=== PATIENT | female | born 1935 | race Caucasian/White ===

== ENCOUNTER 2019-06-14 12:21 | Emergency (ER) | payer OTHER ==
[2019-06-14] MEDS ORDERED: ASPIRIN 81 MG CHEWABLE TABLET ONE (13:10)
--- NOTE | 2019-06-14 13:20 | RAD REPORT ---
EXAM DESCRIPTION: RAD - Chest Single View - 06/14/2019 1:07 pm CLINICAL HISTORY: flushing Chest pain. COMPARISON: No comparisons FINDINGS: Portable technique limits examination quality. The lungs are grossly clear. Mildly elevated right hemidiaphragm. The heart is normal in size. No dis placed fractures. IMPRESSION: No acute intrathoracic process suspected.
[2019-06-14 13:22] LABS: Absolute Lymphocytes (CBC) 1.6 K/uL (0.7-4.9); Basophils % 0.1 % (0-1.3); Lymphocytes % 20.7 % (15.3-44.8); MPV 8.7 fL (7.6-11.3); RBC Red Blood Cell Count 4.92 M/uL (3.86-4.86)
[2019-06-14 13:23] LABS: Protime INR 1.08
[2019-06-14 13:42] LABS: Albumin 3.4 g/dL (3.4-5.0); Bilirubin Direct 0.2 mg/dL (0-0.2); Bilirubin Total 0.6 mg/dL (0.2-1.0); Magnesium 2.1 mg/dL (1.8-2.4); Potassium 4.1 mmol/L (3.5-5.1); Protein, Total 7.3 g/dL (6.4-8.2); Troponin (Emerg Dept Use Only) 0.02 ng/mL (0.0-0.045)
[2019-06-14] MEDS ORDERED: NA CHLORIDE 0.9% 500 ML ONE (14:02)
--- NOTE | 2019-06-14 14:42 | EDPHYS ---
Physician Documentation [facility] Name: Isidra Roger Age: 83 yrs Sex: Female : 1935 Arrival Date: 06/14/2019 Time: 12:33 Bed 15 Private MD: ED Physician Patricio Laureano HPI: 06/13 14:38 This 83 yrs old Female presents to ER via EMS with complaints of Allergic snw Reaction. 14:38 The patient presents with itching, redness of skin. Onset: The symptoms/episode snw began/occurred suddenly, just prior to arrival. Associated signs and symptoms: The patient has no apparent associated signs or symptoms. Possible causes: Niacin flush. Severity of symptoms: At their worst the symptoms were moderate severe in the emergency department the symptoms have improved. The patient has not experienced similar symptoms in the past. It is unknown whether or not the patient has recently seen a physician. denies chest pain, shortness of breath, NIH scale 0. Historical: - Allergies: 12:36 No Known Allergies; em - Home Meds: 12:36 levothyroxine 100 mcg tab [Active]; meloxicam oral oral [Active]; ezetimibe oral oral em [Active]; tramadol 50 mg Oral tab [Active]; 13:38 Niacin Oral [Active]; em - PMHx: 12:36 Hypothyroidism; Hyperlipidemia; em - PSHx: 13:38 Hysterectomy; ; back surgery; em - Immunization history:: Adult Immunizations up to date. - Social history:: Smoking status: Patient denies any tobacco usage or history of. ROS: 13:40 Constitutional: Negative for fever, chills, and weight loss, Eyes: Negative for injury, snw pain, redness, and discharge, ENT: Negative for injury, pain, and discharge, Neck: Negative for injury, pain, and swelling, Cardiovascular: Negative for chest pain, palpitations, and edema, Respiratory: Negative for shortness of breath, cough, wheezing, and pleuritic chest pain, Abdomen/GI: Negative for abdominal pain, nausea, vomiting, diarrhea, and constipation, Back: Negative for injury and pain, : Negative for injury, bleeding, discharge, and swelling, MS/Extremity: Negative for injury and deformity. 13:40 Skin: Positive for diaphoresis, diffusely, flushing. 13:40 Neuro: Positive for sudden weakness, resolved post 20-30 min, flushing, itching continues. Exam: 13:39 Head/Face: Normocephalic, atraumatic. Eyes: Pupils equal round and reactive to light, snw extra-ocular motions intact. Lids and lashes normal. Conjunctiva and sclera are non-icteric and not injected. Cornea within normal limits. Periorbital areas with no swelling, redness, or edema. ENT: Nares patent. No nasal discharge, no septal abnormalities noted. Tympanic membranes are normal and external auditory canals are clear. Oropharynx with no redness, swelling, or masses, exudates, or evidence of obstruction, uvula midline. Mucous membranes moist. Neck: Trachea midline, no thyromegaly or masses palpated, and no cervical lymphadenopathy. Supple, full range of motion without nuchal rigidity, or vertebral point tenderness. No Meningismus. Chest/axilla: Normal chest wall appearance and motion. Nontender with no deformity. No lesions are appreciated. Cardiovascular: Regular rate and rhythm with a normal S1 and S2. No gallops, murmurs, or rubs. Normal PMI, no JVD. No pulse deficits. Respiratory: Lungs have equal breath sounds bilaterally, clear to auscultation and percussion. No rales, rhonchi or wheezes noted. No increased work of breathing, no retractions or nasal flaring. Abdomen/GI: Soft, non-tender, with normal bowel sounds. No distension or tympany. No guarding or rebound. No evidence of tenderness throughout. Back: No spinal tenderness. No costovertebral tenderness. Full range of motion. MS/ Extremity: Pulses equal, no cyanosis. Neurovascular intact. Full, normal range of motion. Neuro: Awake and alert, GCS 15, oriented to person, place, time, and situation. Cranial nerves II-XII grossly intact. Motor strength 5/5 in all extremities. Sensory grossly intact. Cerebellar exam normal. Normal gait. Psych: Awake, alert, with orientation to person, place and time. Behavior, mood, and affect are within normal limits. 13:39 Constitutional: The patient appears alert, awake, flushed, itching 13:39 Skin: Appearance: flushing, noted on the , that are marked, Turgor: is excellent. Vital Signs: 12:36 BP 140 / 59; Pulse 80; Resp 18; Pulse Ox 98% on R/A; Pain 0/10; em 12:36 Weight 88.45 kg; Height 5 ft. 1 in. (154.94 cm); em 13:08 Temp 97.6; mg2 13:49 BP 133 / 51; Pulse 68; Resp 18; Pulse Ox 98% on R/A; Pain 0/10; em 14:58 BP 129 / 58; Pulse 72; Resp 18; Pulse Ox 99% on R/A; Pain 0/10; em 12:36 Body Mass Index 36.84 (88.45 kg, 154.94 cm) em NIH Stroke Scale Scores: 13:39 NIHSS Score: 0 snw MDM: 12:34 Patient medically screened. tw4 14:42 Data reviewed: vital signs, nurses notes, lab test result(s), EKG, radiologic studies. snw Data interpreted: Pulse oximetry: on room air is 98 %. Interpretation: normal. Counseling: I had a detailed discussion with the patient and/or guardian regarding: the historical points, exam findings, and any diagnostic results supporting the discharge/admit diagnosis, the presence of at least one elevated blood pressure reading (>120/80) during this emergency department visit, lab results, radiology results, the need for outpatient follow up, to return to the emergency department if symptoms worsen or persist or if there are any questions or concerns that arise at home. Response to treatment: the patient's symptoms have markedly improved after treatment, the patient's symptoms have resolved after treatment, mental status has returned to baseline, the patient is not short of breath, the patient is not tachycardic, the patient's temperature has normalized. 06/13 12:52 Order name: Basic Metabolic Panel; Complete Time: 13:45 snw 06/13 12:52 Order name: CBC with Diff; Complete Time: 13:26 snw 06/13 12:52 Order name: LFT's; Complete Time: 13:45 snw 06/13 12:52 Order name: Magnesium; Complete Time: 13:45 snw 06/13 12:52 Order name: NT PRO-BNP; Complete Time: 13:45 snw 06/13 12:52 Order name: PT-INR; Complete Time: 13:26 snw 06/13 12:39 Order name: PO challenge: applesauce please; Complete Time: 13:14 w 06/13 12:52 Order name: Troponin (emerg Dept Use Only); Complete Time: 13:45 w 06/13 12:52 Order name: XRAY Chest (1 view); Complete Time: 13:33 snw 06/13 12:52 Order name: EKG; Complete Time: 12:53 w 06/13 12:52 Order name: Cardiac monitoring; Complete Time: 13:15 w 06/13 12:52 Order name: EKG - Nurse/Tech; Complete Time: 13:15 snw 06/13 12:52 Order name: IV Saline Lock; Complete Time: 13:15 w 06/13 12:52 Order name: Labs collected and sent; Complete Time: 13:14 w 06/13 12:52 Order name: O2 Per Protocol; Complete Time: 13:14 w 06/13 12:52 Order name: O2 Sat Monitoring; Complete Time: 13:14 snw Administered Medications: 13:05 Drug: Aspirin Chewable Tablet 162 mg Route: PO; em 14:05 Follow up: Response: No adverse reaction; Marked relief of symptoms em 14:06 Drug: NS 0.9% 500 ml Route: IV; Rate: bolus; Site: right antecubital; em 14:33 Follow up: IV Status: Completed infusion; IV Intake: 500ml em Disposition: 20:58 Co-signature as Attending Physician, Patricio Laureano MD I agree with the assessment and 4 plan of care. Disposition: 06/14/19 14:40 Discharged to Home. Impression: Flushing - Niacin, Adverse effect of unspecified drugs, medicaments and biological substances. - Condition is Stable. - Discharge Instructions: Nontoxic Ingestion. - Medication Reconciliation Form, Thank You Letter, Antibiotic Education, Prescription Opioid Use form. - Follow up: Emergency Department; When: As needed; Reason: Worsening of condition. Follow up: Private Physician; When: 1 - 2 days; Reason: Recheck today's complaints, Continuance of care, Re-evaluation by your physician. NIH Stroke Scale - NIH Stroke Score Date: 06/14/2019 Time: 13:39 Total Score = 0 1a. Level of Consciousness (LOC) - 0(Alert) 1b. Level of Consciousness (LOC) (Year \T\ Age) - 0(Both) 1c. LOC Commands (Open \T\ Closes Eyes/Negotiator) - 0(Both) 2. Best Gaze (Lateral Gaze Paresis) - 0(Normal) 3. Visual Field Loss - 0(No visual loss) 4. Facial Palsy - 0(Normal) 5a. Left Arm: Motor (10-second hold) - 0(No drift) 5b. Right Arm: Motor (10-second hold) - 0(No drift) 6a. Left Leg: Motor (5-second hold - always test supine) - 0(No drift) 6b. Right Leg: Motor (5-second hold - always test supine) - 0(No drift) 7. Limb Ataxia (finger/nose \T\ heel/roy - test with eyes open) - 0(Absent) 8. Sensory Loss (pinprick arms/legs/face) - 0(Normal) 9. Best Language: Aphasia (description/naming/reading) - 0(No aphasia) 10. Dysarthria (speech clarity - read or repeat words) - 0(Normal) 11. Extinction and Inattention (visual/tactile/auditory/spatial/personal) - 0(No abnormality) Initials: snw Signatures: Dispatcher [employer] EDMS Amaris Hu, WAITER/WAITRESS FIRST CLASS-C WAITER/WAITRESS FIRST CLASS-Csnw Randy Garcia RN RN em Wadley, Terrence, MD MD tw4 Corrections: (The following items were deleted from the chart) 14:41 14:40 06/14/2019 14:40 Discharged to Home. Impression: Flushing - Niacin. snw Condition is Stable. Forms are Medication Reconciliation Form, Thank You Letter, Antibiotic Education, Prescription Opioid Use. Follow up: Emergency Department; When: As needed; Reason: Worsening of condition. Follow up: Private Physician; When: 1 - 2 days; Reason: Recheck today's complaints, Continuance of care, Re-evaluation by your physician. snw 15:40 14:41 06/14/2019 14:40 Discharged to Home. Impression: Flushing - Niacin; em Adverse effect of unspecified drugs, medicaments and biological substances. Condition is Stable. Forms are Medication Reconciliation Form, Thank You Letter, Antibiotic Education, Prescription Opioid Use. Follow up: Emergency Department; When: As needed; Reason: Worsening of condition. Follow up: Private Physician; When: 1 - 2 days; Reason: Recheck today's complaints, Continuance of care, Re-evaluation by your physician. snw
--- NOTE | 2019-06-14 14:42 | ER ---
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 Coronavirus screen: The patient has NOT traveled to [place] in the past 14 days. Ebola Screen: Patient negative for fever greater than or equal to 101.5 degrees Fahrenheit, and additional compatible Ebola Virus Disease symptoms Patient denies exposure to infectious person. Patient denies travel to an Ebola-affected area in the 21 days before illness onset. No symptoms or risks identified at this time. Onset: The symptoms/episode began/occurred suddenly, 2 hour(s) ago. Anaphylaxis evaluation, no signs or symptoms of anaphylaxis were noted. Initial Sepsis Screen: Does the patient meet any 2 criteria? No. Patient's initial sepsis screen is negative. Does the patient have a suspected source of infection? No. Patient's initial sepsis screen is negative. Risk Assessment: Do you want to hurt yourself or someone else? Patient reports no desire to harm self or others. 12:36 Method Of Arrival: EMS: [facility] em 12:36 Acuity: LEIGH ANN 3 em Historical: - Allergies: 12:36 No Known Allergies; em - Home Meds: 12:36 levothyroxine 100 mcg tab [Active]; meloxicam oral oral [Active]; ezetimibe oral oral em [Active]; tramadol 50 mg Oral tab [Active]; 13:38 Niacin Oral [Active]; em - PMHx: 12:36 Hypothyroidism; Hyperlipidemia; em - PSHx: 13:38 Hysterectomy; ; back surgery; em - Immunization history:: Adult Immunizations up to date. - Social history:: Smoking status: Patient denies any tobacco usage or history of. Screenin:37 Abuse screen: Denies threats or abuse. Nutritional screening: No deficits noted. em Tuberculosis screening: No symptoms or risk factors identified. Fall Risk None identified. Assessment: 12:36 General: Appears in no apparent distress. comfortable, Behavior is calm, cooperative, em Denies fever. Pain: Denies pain. Neuro: Level of Consciousness is awake, alert, obeys commands, Oriented to person, place, time, situation, Appropriate for age Economic Consultant are equal bilaterally Moves all extremities. Speech is normal, Facial symmetry appears normal, Reports a syncopal episode weakness. Cardiovascular: Reports fatigue, Denies chest pain, nausea, shortness of breath, Capillary refill < 3 seconds Patient's skin is warm and dry. Rhythm is sinus rhythm. Respiratory: Airway is patent Respiratory effort is even, unlabored, Respiratory pattern is regular, symmetrical, Breath sounds are clear bilaterally. GI: Abdomen is round non-distended. Derm: Skin is intact, is thin, Skin is pink, warm \T\ dry. redness noted to upper extremities and bhumi. thighs Reports itching. Musculoskeletal: Capillary refill < 3 seconds, Range of motion: intact in all extremities. 13:10 Reassessment: Patient appears in no apparent distress at this time. given apple sauce, em tolerated well. 13:48 Reassessment: Patient appears in no apparent distress at this time. Patient and/or em family updated on plan of care and expected duration. Pain level reassessed. Patient is alert, oriented x 3, equal unlabored respirations, skin warm/dry/pink. itching has improved. 14:30 Reassessment: Patient appears in no apparent distress at this time. Patient and/or em family updated on plan of care and expected duration. Pain level reassessed. Patient is alert, oriented x 3, equal unlabored respirations, skin warm/dry/pink. Patient denies pain at this time. Patient states feeling better. Patient states symptoms have improved. Vital Signs: 12:36 BP 140 / 59; Pulse 80; Resp 18; Pulse Ox 98% on R/A; Pain 0/10; em 12:36 Weight 88.45 kg; Height 5 ft. 1 in. (154.94 cm); em 13:08 Temp 97.6; mg2 13:49 BP 133 / 51; Pulse 68; Resp 18; Pulse Ox 98% on R/A; Pain 0/10; em 14:58 BP 129 / 58; Pulse 72; Resp 18; Pulse Ox 99% on R/A; Pain 0/10; em 12:36 Body Mass Index 36.84 (88.45 kg, 154.94 cm) em NIH Stroke Scale Scores: 13:39 NIHSS Score: 0 snw ED Course: 12:33 Patient arrived in ED. em 12:34 Patricio Laureano MD is Attending Physician. tw4 12:36 Randy Garcia, RN is Primary Nurse. em 12:36 Arm band placed on. em 12:37 Patient has correct armband on for positive identification. Placed in gown. Bed in low em position. Call light in reach. Side rails up X2. Adult w/ patient. classroom monitor on. Pulse ox on. NIBP on. 12:37 Maintain EMS IV. Dressing intact. Good blood return noted. Site clean \T\ dry. Gauge \T\ em site: 20 RAC. 12:38 Amaris Hu FNP-C is [facility]. snw 12:40 Triage completed. em 13:13 XRAY Chest (1 view) In Process Unspecified. EDMS 13:47 EKG done, by technical business analyst. reviewed by Amaris AADM. at1 15:37 No provider procedures requiring assistance completed. IV discontinued, intact, em bleeding controlled, No redness/swelling at site. Pressure dressing applied. Administered Medications: 13:05 Drug: Aspirin Chewable Tablet 162 mg Route: PO; em 14:05 Follow up: Response: No adverse reaction; Marked relief of symptoms em 14:06 Drug: NS 0.9% 500 ml Route: IV; Rate: bolus; Site: right antecubital; em 14:33 Follow up: IV Status: Completed infusion; IV Intake: 500ml em Intake: 14:33 IV: 500ml; Total: 500ml. em Outcome: 14:40 Discharge ordered by . snw 15:37 Discharged to home ambulatory, with family. em 15:37 Condition: good 15:37 Discharge instructions given to patient, family, Instructed on discharge instructions, follow up and referral plans. Demonstrated understanding of instructions, follow-up care. 15:40 Patient left the ED. em NIH Stroke Scale - NIH Stroke Score Date: 06/14/2019 Time: 13:39 Total Score = 0 1a. Level of Consciousness (LOC) - 0(Alert) 1b. Level of Consciousness (LOC) (Year \T\ Age) - 0(Both) 1c. LOC Commands (Open \T\ Closes Eyes/Industrial Gas Servicer Supervisor) - 0(Both) 2. Best Gaze (Lateral Gaze Paresis) - 0(Normal) 3. Visual Field Loss - 0(No visual loss) 4. Facial Palsy - 0(Normal) 5a. Left Arm: Motor (10-second hold) - 0(No drift) 5b. Right Arm: Motor (10-second hold) - 0(No drift) 6a. Left Leg: Motor (5-second hold - always test supine) - 0(No drift) 6b. Right Leg: Motor (5-second hold - always test supine) - 0(No drift) 7. Limb Ataxia (finger/nose \T\ heel/roy - test with eyes open) - 0(Absent) 8. Sensory Loss (pinprick arms/legs/face) - 0(Normal) 9. Best Language: Aphasia (description/naming/reading) - 0(No aphasia) 10. Dysarthria (speech clarity - read or repeat words) - 0(Normal) 11. Extinction and Inattention (visual/tactile/auditory/spatial/personal) - 0(No abnormality) Initials: snw Signatures: Dispatcher [employer] Amaris Nava, BOX OFFICE ATTENDANT-C BOX OFFICE ATTENDANT-Csnw Randy Garcia, PERFECTO RN em Lacy Cid, hot wound spring production supervisor EKG Tat1 Patricio Laureano MD MD tw4 Emeterio Donald RN RN mg2
--- NOTE | 2019-06-14 15:32 | EKG ---
Test Date: 2019-06-14 Test Time: 13:19:07 Double End Production Grinder: VILMA MEASUREMENT RESULTS: Intervals: Rate: 73 MD: 140 QRSD: 108 QT: 400 QTc: 440 [place]: P: 79 MD: 140 QRS: 58 T: 60 INTERPRETIVE STATEMENTS: Normal sinus rhythm Incomplete right bundle branch block Nonspecific T wave abnormality Abnormal ECG No previous ECG available for comparison Electronically Signed On 06-14-19 15:31:36 COKE OVEN PATCHER by Thiago Haywood
[2019-06-14 16:46] VITALS: TEMP 97.6
[2019-06-14 16:49] VITALS: BP 129/58; O2SAT 99
== END 2019-06-14 15:40 | disposition home or self-care (01) ==
LOC: ER 12:21
DX: R23.2 Flushing (principal); T50.905A Adverse effect of unspecified drugs, medicaments and biological substances, initial encounter; Y92.9 Unspecified place or not applicable; E03.9 Hypothyroidism, unspecified; E78.5 Hyperlipidemia, unspecified
CPT/HCPCS: 93005; 85025; 80048; 36415; 83735; 85610; 80076; 84484; 83880; 71045; 99284; J7040

== ENCOUNTER 2021-08-29 10:46 | Inpatient (IN) | payer OTHER ==
[2021-08-29] MEDS ORDERED: NA CHLORIDE 0.9% 1,000 ML ONE (11:11)
[2021-08-29] MEDS ORDERED: ADENOSINE 6 MG/ 2ML VIAL IV ONE (11:11)
[2021-08-29] MEDS ORDERED: dilTIAZem HCL 25 MG/5 ML VIAL IV ONE (11:20)
[2021-08-29 11:54] LABS: Potassium 4.1 mmol/L (3.5-5.1); Troponin High Sensitivity 28.4 pg/mL (<58.9)
[2021-08-29] MEDS ORDERED: ASPIRIN 81 MG CHEWABLE TABLET ONE (11:54)
[2021-08-29 12:01] LABS: Protime INR 1.05
[2021-08-29 12:02] LABS: Absolute Lymphocytes (CBC) 2.4 K/uL (0.7-4.9); Hematocrit 51.9 % (36.0-45.0); Lymphocytes % 26.7 % (15.3-44.8); RBC Red Blood Cell Count 5.55 M/uL (3.86-4.86)
--- NOTE | 2021-08-29 12:03 | RAD REPORT ---
EXAM DESCRIPTION: Melina Single View08/29/2021 11:35 am CLINICAL HISTORY: Hypertension and supraventricular tachycardia COMPARISON: 2019 FINDINGS: The lungs appear clear of acute infiltrate. The heart is normal size IMPRESSION: No acute abnormalities displayed
--- NOTE | 2021-08-29 12:14 | ER ---
Nurse's Notes [facility] Name: Isidra Roger Age: 86 yrs Sex: Female : 1935 Arrival Date: 08/29/2021 Time: 10:47 Bed 28 Private MD: Ramila Peralta H Diagnosis: Unspecified atrial fibrillation;Atrial Fibrillation with RVR;Essential (primary) hypertension Presentation: 08/29 10:50 Chief complaint: Patient states: she felt like her HR was elevated today, and went to ap3 urgent care but was then sent to ER from there. Patient states they informed her that her blood pressure was high and her HR was elevated. Patient denies any pain, shortness of breath or N/V at this time. Coronavirus screen: At this time, the client does not indicate any symptoms associated with coronavirus-19. Ebola Screen: No symptoms or risks identified at this time. Initial Sepsis Screen: Does the patient meet any 2 criteria? No. Patient's initial sepsis screen is negative. Does the patient have a suspected source of infection? No. Patient's initial sepsis screen is negative. Risk Assessment: Do you want to hurt yourself or someone else? Patient reports no desire to harm self or others. Onset of symptoms was August 29, 2021. 10:50 Method Of Arrival: Ambulatory ap3 10:50 Acuity: LEIGH ANN 2 ap3 Triage Assessment: 11:10 General: Appears in no apparent distress. Behavior is calm, cooperative. Pain: Denies ap3 pain. Neuro: Level of Consciousness is awake, alert, obeys commands, Oriented to person, place, time, situation, Moves all extremities. Gait is steady, Speech is normal. Cardiovascular: Denies chest pain, shortness of breath, Patient's skin is warm and dry. Rhythm is SVT. Respiratory: Airway is patent Respiratory effort is even, unlabored, Respiratory pattern is regular, symmetrical. Historical: - Allergies: 11:06 No Known Allergies; ap3 - Home Meds: 11:06 tramadol Oral [Active]; meloxicam Oral [Active]; levothyroxine [Active]; ap3 Triamterene-Hydrochlorothiazid Oral [Active]; rosuvastatin oral [Active]; - PMHx: 11:06 Hyperlipidemia; Hypothyroidism; Hypertensive disorder; ap3 - Immunization history:: Client reports receiving the 2nd dose of the Covid vaccine. - Social history:: Smoking status: Patient denies any tobacco usage or history of. Screenin:11 Abuse screen: Denies threats or abuse. Nutritional screening: No deficits noted. ap3 Tuberculosis screening: No symptoms or risk factors identified. 19:13 Fall Risk None identified. lg3 Assessment: 11:10 General: SEE TRIAGE NOTE. AFIB/RVR NOTED ON EKG. bp 11:12 Pain: pt denies pain. ap3 12:30 Reassessment: No changes from previously documented assessment. Patient and/or family bp updated on plan of care and expected duration. Pain level reassessed. 14:30 Reassessment: ADMIT INITIATED. bp 16:00 Reassessment: No changes from previously documented assessment. Patient and/or family bp updated on plan of care and expected duration. Pain level reassessed. Cardiovascular: Rhythm is atrial flutter. 17:00 Reassessment: No changes from previously documented assessment. Patient and/or family bp updated on plan of care and expected duration. Pain level reassessed. ADMIT IN PROCESS. Cardiovascular: Rhythm is atrial flutter. 19:13 Pain: Pain began. lg3 20:19 General: Appears in no apparent distress. comfortable, Behavior is calm, cooperative. lg3 Pain: Denies pain. Neuro: No deficits noted. Saucedo Agitation-Sedation Scale (RASS): 0 - Alert and Calm Level of Consciousness is awake, alert, obeys commands, Oriented to person, place, time, situation. Cardiovascular: Denies chest pain, lightheadedness, shortness of breath, Rhythm is atrial flutter. Respiratory: No deficits noted. Airway is patent Trachea midline Respiratory effort is even, unlabored, Respiratory pattern is regular, symmetrical. GI: No deficits noted. No signs and/or symptoms were reported involving the gastrointestinal system. Abdomen is round non-distended. : No deficits noted. No signs and/or symptoms were reported regarding the genitourinary system. EENT: No deficits noted. No signs and/or symptoms were reported regarding the EENT system. Derm: No deficits noted. No signs and/or symptoms reported regarding the dermatologic system. Skin is intact, is healthy with good turgor, Skin is dry, Skin is pink, warm \T\ dry. Musculoskeletal: No deficits noted. No signs and/or symptoms reported regarding the musculoskeletal system. Circulation, motion, and sensation intact. Range of motion: intact in all extremities. 21:45 Reassessment: Patient appears in no apparent distress at this time. No changes from lg3 previously documented assessment. Patient and/or family updated on plan of care and expected duration. Pain level reassessed. Patient is alert, oriented x 3, equal unlabored respirations, skin warm/dry/pink. 23:10 Reassessment: pt ambulated to restroom. steady gate noted. lg3 08/30 00:56 Reassessment: Patient appears in no apparent distress at this time. No changes from lg3 previously documented assessment. Patient and/or family updated on plan of care and expected duration. Pain level reassessed. Patient is alert, oriented x 3, equal unlabored respirations, skin warm/dry/pink. Patient denies pain at this time. Patient states symptoms have improved. 02:19 Reassessment: Patient appears in no apparent distress at this time. No changes from lg3 previously documented assessment. Patient and/or family updated on plan of care and expected duration. Pain level reassessed. Patient is alert, oriented x 3, equal unlabored respirations, skin warm/dry/pink. Patient denies pain at this time. Cardiovascular: Rhythm is atrial flutter. Vital Signs: 08/29 10:50 BP 200 / 118; Pulse 162; Resp 18; Temp 97.8; Pulse Ox 97% ; Weight 86.18 kg; Height 5 ap3 ft. 2 in. (157.48 cm); 11:20 BP 125 / 56; Pulse 71; Resp 19; Pulse Ox 94% ; bp 12:30 BP 142 / 72; Pulse 88; Resp 16; Pulse Ox 97% ; bp 14:30 BP 173 / 128; Pulse 82; Resp 16; Pulse Ox 95% ; bp 16:00 BP 185 / 123; Pulse 84; Resp 16; Pulse Ox 97% ; bp 17:00 BP 158 / 73; Pulse 90; Resp 17; Pulse Ox 96% ; bp 19:29 BP 145 / 79; Pulse 84; Resp 16; Pulse Ox 97% on R/A; lg3 21:40 BP 172 / 83; Pulse 91; Resp 19; Pulse Ox 97% on R/A; lg3 23:17 BP 166 / 81; Pulse 86; Resp 17; Pulse Ox 97% on R/A; lg3 08/30 00:27 BP 165 / 78; Pulse 93; Resp 19 S; Pulse Ox 96% on R/A; lg3 02:19 BP 124 / 87; Pulse 83; Resp 18; Pulse Ox 95% on R/A; lg3 08/29 10:50 Body Mass Index 34.75 (86.18 kg, 157.48 cm) ap3 ED Course: 08/29 10:47 Patient arrived in ED. as 10:47 Ramila Peralta DO is Private Physician. as 10:51 EKG done, by ED staff, reviewed by Frank Juarez DO. ap3 10:59 Frank Juarez DO is Attending Physician. ms3 11:00 Inserted saline lock: 18 gauge in left antecubital area, using aseptic technique. Blood bp collected. 11:06 Triage completed. ap3 11:08 Viktor Asher, PERFECTO is Primary Nurse. bp 11:11 Patient maintains SpO2 saturation greater than 95% on room air. ap3 11:11 Arm band placed on right wrist. ap3 11:12 Patient has correct armband on for positive identification. Placed in gown. Bed in low ap3 position. Call light in reach. Side rails up X2. satellite project site monitor on. Pulse ox on. NIBP on. 11:36 XRAY Chest (1 view) In Process Unspecified. EDMS 12:12 Clayton Jimenez MD is Hospitalizing Provider. ms3 19:15 Primary Nurse role handed off by Viktor Asher RN mw2 19:29 Yuki Parks, PERFECTO is Primary Nurse. lg3 08/30 00:26 No provider procedures requiring assistance completed. Patient admitted, IV remains in lg3 place. intact, No redness/swelling at site. 04:31 Primary Nurse role handed off by Yuki Parks, PERFECTO mw2 Administered Medications: 08/29 11:10 Drug: NS 0.9% 1000 ml Route: IV; Rate: 1000 ml; Site: left antecubital; ss 19:03 Follow up: IV Status: Completed infusion; IV Intake: 1000ml bp 11:13 Not Given (Physician Discretion): Adenosine 6 mg IVP once ms3 11:15 Drug: Cardizem (diltiazem) 20 mg Route: IVP; Site: left antecubital; bp 19:04 Follow up: Response: No adverse reaction bp 11:30 Drug: Aspirin Chewable Tablet 324 mg Route: PO; bp Medication: 11:11 VIS not applicable for this client. ap3 Intake: 19:03 IV: 1000ml; Total: 1000ml. bp Outcome: 12:14 Decision to Hospitalize by Provider. ms3 08/30 00:27 Admitted to Med/surg lg3 Condition: stable Instructed on the need for admit. 18:42 Patient left the ED. iw Signatures: Dispatcher [employer] EDGenet Jerez Irene, RN RN iw Dariela Anand RN RN Viktor Asher RN RN bp Lacy Gee RN RN ap3 Iraj Guerrier 2 Yuki Parks RN RN lg3 Frank Juarez DO DO ms3 Corrections: (The following items were deleted from the chart) 08/29 11:09 11:06 Home Meds: Niacin Oral; ap3 ap3 08/30 02:19 02:16 Reassessment: pt ambulated to restroom. steady gate noted lg3 lg3 : 02:18 Reassessment: Patient appears in no apparent distress at this time. No changes lg3 from previously documented assessment. Patient and/or family updated on plan of care and expected duration. Pain level reassessed. Patient is alert, oriented x 3, equal unlabored respirations, skin warm/dry/pink. Patient denies pain at this time. Patient states symptoms have improved. lg3
--- NOTE | 2021-08-29 12:14 | EDPHYS ---
Physician Documentation [facility] Name: Isidra Roger Age: 86 yrs Sex: Female : 1935 Arrival Date: 08/29/2021 Time: 10:47 Bed 28 Private MD: Ramila Peralta H ED Physician Frank Juarez HPI: 08/29 11:07 This 86 yrs old Female presents to ER via Ambulatory with complaints of High Blood ms3 Pressure, Irregular Pulse. 11:07 The patient has elevated blood pressure and discovered this at home. Onset: The ms3 symptoms/episode began/occurred 2 day(s) ago. Modifying factors: The symptoms are aggravated by Nothing, The symptoms are alleviated by Nothing. Associated signs and symptoms: Pertinent negatives: chest pain, headache, nausea, vomiting. Severity of symptoms: in the emergency department the blood pressure is 200/118. Historical: - Allergies: 11:06 No Known Allergies; ap3 - Home Meds: 11:06 tramadol Oral [Active]; meloxicam Oral [Active]; levothyroxine [Active]; ap3 Triamterene-Hydrochlorothiazid Oral [Active]; rosuvastatin oral [Active]; - PMHx: 11:06 Hyperlipidemia; Hypothyroidism; Hypertensive disorder; ap3 - Immunization history:: Client reports receiving the 2nd dose of the Covid vaccine. - Social history:: Smoking status: Patient denies any tobacco usage or history of. ROS: 11:07 Constitutional: Negative for fever, and chills. Respiratory: Negative for shortness of ms3 breath, cough, wheezing, and pleuritic chest pain, Abdomen/GI: Negative for abdominal pain, nausea, vomiting, diarrhea, and constipation, MS/Extremity: Negative for injury and deformity, Neuro: Negative for headache, weakness, numbness, tingling. 11:07 Cardiovascular: Positive for palpitations. 11:07 All other systems are negative. Exam: 10:52 ECG was reviewed by the Attending Physician. ms3 11:07 Constitutional: This is a well developed, well nourished patient who is awake, alert, ms3 and in no acute distress. Head/Face: Normocephalic, atraumatic. Neck: Trachea midline, no cervical lymphadenopathy. Supple, full range of motion without nuchal rigidity, or vertebral point tenderness. No Meningismus. Chest/axilla: Normal chest wall appearance and motion. Nontender with no deformity. Respiratory: Lungs have equal breath sounds bilaterally, clear to auscultation and percussion. No rales, rhonchi or wheezes noted. No increased work of breathing, no retractions or nasal flaring. Abdomen/GI: Soft, non-tender, with normal bowel sounds. No distension or tympany. No guarding or rebound. No evidence of tenderness throughout. Skin: Warm, dry with normal turgor. Normal color with no rashes, no lesions, and no evidence of cellulitis. Psych: Awake, alert, with orientation to person, place and time. Behavior, mood, and affect are within normal limits. 11:07 Cardiovascular: Rate: tachycardic, Rhythm: regular, Heart sounds: normal, Edema: is not appreciated. 11:16 ECG was reviewed by the Attending Physician. ms3 Vital Signs: 10:50 BP 200 / 118; Pulse 162; Resp 18; Temp 97.8; Pulse Ox 97% ; Weight 86.18 kg; Height 5 ap3 ft. 2 in. (157.48 cm); 11:20 BP 125 / 56; Pulse 71; Resp 19; Pulse Ox 94% ; bp 12:30 BP 142 / 72; Pulse 88; Resp 16; Pulse Ox 97% ; bp 14:30 BP 173 / 128; Pulse 82; Resp 16; Pulse Ox 95% ; bp 16:00 BP 185 / 123; Pulse 84; Resp 16; Pulse Ox 97% ; bp 17:00 BP 158 / 73; Pulse 90; Resp 17; Pulse Ox 96% ; bp 19:29 BP 145 / 79; Pulse 84; Resp 16; Pulse Ox 97% on R/A; lg3 21:40 BP 172 / 83; Pulse 91; Resp 19; Pulse Ox 97% on R/A; lg3 23:17 BP 166 / 81; Pulse 86; Resp 17; Pulse Ox 97% on R/A; lg3 05 00:27 BP 165 / 78; Pulse 93; Resp 19 S; Pulse Ox 96% on R/A; lg3 02:19 BP 124 / 87; Pulse 83; Resp 18; Pulse Ox 95% on R/A; lg3 0518 10:50 Body Mass Index 34.75 (86.18 kg, 157.48 cm) ap3 MDM: 08/29 10:52 Differential diagnosis: hypertensive crisis, Malignant HTN, ACS vs SVT. ms3 10:52 Data interpreted: playground monitor: rate is 163 beats/min, rhythm is supraventricular ms3 tachycardia, with no ectopy, Interpretation: normal rhythm, tachycardia. Data interpreted: Pulse oximetry: on room air is 97 %. Interpretation: normal. Test interpretation: by ED physician or midlevel provider: ECG. Counseling: I had a detailed discussion with the patient and/or guardian regarding: the historical points, exam findings, and any diagnostic results supporting the discharge/admit diagnosis, lab results, radiology results, the need for further work-up and treatment in the hospital. ED course: Discussed case with Dr Jimenez. He accepts patient as observation. Discussed plan for admission with patient and her and they agree with plan. All questions answered. Patient remains in stable condition in the ED.. 11:06 Patient medically screened. ms3 15:53 Data reviewed: vital signs, nurses notes, lab test result(s), EKG, radiologic studies. ms3 08/29 11:06 Order name: Basic Metabolic Panel; Complete Time: 11:59 ms3 08/29 11:06 Order name: CBC with Diff; Complete Time: 12:08 ms3 08/29 11:06 Order name: NT PRO-BNP; Complete Time: 11:59 ms3 08/29 11:06 Order name: Troponin HS; Complete Time: 11:59 ms3 08/29 11:11 Order name: Protime (+inr); Complete Time: 12:08 bp 08/29 11:11 Order name: Ptt, Activated; Complete Time: 12:08 bp 08/29 11:06 Order name: XRAY Chest (1 view); Complete Time: 12:08 ms3 08/29 17:35 Order name: COVID-19 SARS RT PCR (Document "Date of Onset" if Symptomatic) ss 08/30 01:13 Order name: Basic Metabolic Panel EDOK 08/30 01:13 Order name: Basic Metabolic Panel EDOK 08/30 01:13 Order name: CBC with Automated Diff EDOK 08/30 01:13 Order name: CBC with Automated Diff EDOK 08/30 01:13 Order name: Lipid Profile EDOK 08/30 01:13 Order name: Lipid Profile EDOK 08/29 11:06 Order name: EKG; Complete Time: 11:07 ms3 08/29 11:06 Order name: Cardiac monitoring; Complete Time: 11:11 ms3 08/29 11:06 Order name: EKG - Nurse/Tech; Complete Time: 11:11 ms3 08/29 11:06 Order name: IV Saline Lock; Complete Time: 11:08 ms3 08/29 11:06 Order name: Labs collected and sent; Complete Time: 11:08 ms3 08/29 11:06 Order name: O2 Per Protocol; Complete Time: 11:08 ms3 08/29 11:06 Order name: O2 Sat Monitoring; Complete Time: 11:08 ms3 08/30 01:13 Order name: CONS Physician Consult EDMS 08/30 01:13 Order name: Heart Healthy EDMS 08/30 01:13 Order name: Echo with Doppler EDMS EC:52 Rate is 163 beats/min. Rhythm is regular. QRS [place] is Normal. Clinical impression: SVT. ms3 Interpreted by me. 11:08 Rate is 131 beats/min. Rhythm is irregularly irregular. QRS [place] is Normal. QRS ms3 interval is normal. Clinical impression: A fib with RVR. Interpreted by me. 11:16 Rate is 82 beats/min. Rhythm is irregularly irregular. QRS [place] is Normal. Clinical ms3 impression: Atrial Fibrillation. Interpreted by me. Administered Medications: 11:10 Drug: NS 0.9% 1000 ml Route: IV; Rate: 1000 ml; Site: left antecubital; ss 19:03 Follow up: IV Status: Completed infusion; IV Intake: 1000ml bp 11:13 Not Given (Physician Discretion): Adenosine 6 mg IVP once ms3 11:15 Drug: Cardizem (diltiazem) 20 mg Route: IVP; Site: left antecubital; bp 19:04 Follow up: Response: No adverse reaction bp 11:30 Drug: Aspirin Chewable Tablet 324 mg Route: PO; bp Disposition Summary: 08/29/21 12:14 Hospitalization Ordered Hospitalization Status: Observation ms3 Provider: Clayton Jimenez ms3 Condition: Stable ms3 Problem: new ms3 Symptoms: are unchanged ms3 Bed/Room Type: Standard ms3 Location: [facility] ER HOLD(08/29/21 20:35) oe Room Assignment: ERHOLD-(08/29/21 20:35) oe Diagnosis - Unspecified atrial fibrillation ms3 - Atrial Fibrillation with RVR ms3 - Essential (primary) hypertension ms3 Forms: - Medication Reconciliation Form ms3 - SBAR form ms3 Signatures: Dispatcher [employer] EDMS Dariela Anand, RN RN ss Tim Otero oe Viktor Asher RN RN bp Lacy Gee RN RN ap3 Frank Juarez DO DO ms3 Corrections: (The following items were deleted from the chart) 11:09 11:06 Home Meds: Niacin Oral; ap3 ap3 20:35 12:14 Telemetry/MedSurg (observation) ms3 oe 20:35 12:14 ms3 oe
[2021-08-30] MEDS ORDERED: ACETAMINOPHEN 500 MG TAB PO PRN (01:09)
--- NOTE | 2021-08-30 01:13 | P.HP ---
Certification for Inpatient Patient admitted to: Inpatient With expected LOS: >2 Midnights Patient will require the following post-hospital care: None Practitioner: I am a practitioner with admitting privileges, knowledge of patient current condition, hospital course, and medical plan of care. Services: Services provided to patient in accordance with Admission requirements found in Title 42 Section 412.3 of the Code of Federal Regulations Patient History Date of Service: 08/29/21 Reason for admission: Afib with RVR History of Present Illness: Patient is a very pleasant 86-year-old female who came to the hospital with atrial fibrillation with rapid ventricular response. Patient has not had any cardiac history in the past. Patient has a history of hypertension and dyslipidemia and hypothyroidism. She states she had been doing well up until she started feeling some shortness of breath and palpitations. She came to the emergency room and she was found to be in atrial fibrillation. She was given IV medication and her heart rate has improved. However, she still runs in the 130s and 140s when she is awake and moving. She has been given beta-lucas therapy. I will go ahead and give her IV digoxin and await for cardiology consultation. Echocardiogram pending as well Allergies No Known Allergies Allergy (Unverified 08/30/21 04:43) - Past Medical/Surgical History -: Hypertension -: Dyslipidemia -: Hypothyroidism Past Surgical History: Patient denies surgical history - Family History Father Family History: Reviewed- Non-Contributory - Social History Smoking Status: Current every day smoker Alcohol use: No CD- Drugs: No Review of Systems 10-point ROS is otherwise unremarkable Physical Examination - Vital Signs Temperature: 98 F Blood Pressure: 140/80 Pulse: 119 Respirations: 20 Pulse Ox (%): 95 - Physical Exam General: Alert, In no apparent distress, Oriented x3 HEENT: Atraumatic, PERRLA, Mucous membr. moist/pink, EOMI, Sclerae nonicteric Neck: Supple, 2+ carotid pulse no bruit, No LAD, Without JVD or thyroid abnormality Respiratory: Clear to auscultation bilaterally, Normal air movement Cardiovascular: Abnormal S3, Systolic murmur Gastrointestinal: Normal bowel sounds, Soft and benign, Non-distended, No tenderness Musculoskeletal: No clubbing, No swelling, No tenderness Integumentary: No rashes Neurological: Normal gait, Normal speech, Normal strength at 5/5 x4 extr, Normal tone, Sensation intact, Cranial nerves 3-12 intact, Normal affect Lymphatics: No axilla or inguinal lymphadenopathy - Studies Laboratory Data (last 24 hrs) 08/29/21 11:10: PT 11.6, INR 1.05, APTT 35.5 08/29/21 11:10: WBC 8.9, Hgb 16.7 H, Hct 51.9 H, Plt Count 278 08/29/21 11:10: Sodium 141, Potassium 4.1, BUN 19 H, Creatinine 1.31 H, Glucose 109 H Assessment & Plan - Problems (Diagnosis) (1) Atrial fibrillation with RVR Current Visit: Yes Status: Acute (2) HTN (hypertension) Current Visit: Yes Status: Acute (3) Hypothyroid Current Visit: Yes Status: Acute (4) Dyslipidemia Current Visit: Yes Status: Acute - Plan Plan: 1. Continue with medication for rate control 2. Continue with anticoagulation 3. Cardiology consultation 4. Echocardiogram 5. Monitor on telemetry 6. GI DVT prophylaxis Discharge Plan: Home Plan to discharge in: Greater than 2 days - Advance Directives Does patient have a Living Will: No Does patient have a Durable POA for Healthcare: No - Code Status/Comfort Care Code Status Assessed: Yes Code Status: Full Code Critical Care: No Time Spent Managing PTS Care (In Minutes): 45
[2021-08-30] MEDS ORDERED: MORPHINE 2 MG/ML SYR ONE ×3 (04:57→15:51)
[2021-08-30] MEDS: MORPHINE 4 MG/ML SYR IV PRN ×3 (05:01→15:50)
[2021-08-30 05:31] VITALS: BMI 34.7
[2021-08-30] MEDS ORDERED: METOPROLOL TAR 50 MG TAB PO SCH ×2 (06:00→21:00)
[2021-08-30] MEDS ORDERED: DIGOXIN 0.25 MG/ML AMP IV ONE (06:44)
[2021-08-30] MEDS ORDERED: DIGOXIN 0.25 MG/ML AMP ONE (06:54)
[2021-08-30] MEDS ORDERED: METOPROLOL TAR 50 MG TAB ONE (06:54)
--- NOTE | 2021-08-30 07:40 | EKG ---
Test Date: 2021-08-29 Test Time: 10:52:09 Traveling Buyer: ALP MEASUREMENT RESULTS: Intervals: Rate: 163 OR: QRSD: 102 QT: 296 QTc: 487 [place]: P: OR: QRS: 76 T: -88 INTERPRETIVE STATEMENTS: Supraventricular tachycardia Incomplete right bundle branch block Marked ST abnormality, possible inferior subendocardial injury Abnormal ECG Compared to ECG 06/14/2019 13:19:07 ST (T wave) deviation now present Sinus rhythm no longer present T-wave abnormality no longer present Electronically Signed On 08-30-21 07:37:17 CDT by Yohan Henao
--- NOTE | 2021-08-30 07:40 | EKG ---
Test Date: 2021-08-29 Test Time: 11:08:45 Medical Oncologist: MARTINEZ MEASUREMENT RESULTS: Intervals: Rate: 131 IN: QRSD: 110 QT: 322 QTc: 475 [place]: P: IN: QRS: 69 T: -67 INTERPRETIVE STATEMENTS: Atrial flutter with variable AV block Incomplete right bundle branch block ST & T wave abnormality, consider inferior ischemia ST & T wave abnormality, consider anterolateral ischemia Abnormal ECG Compared to ECG 06/14/2019 13:19:07 ST (T wave) deviation now present Possible ischemia now present Sinus rhythm no longer present T-wave abnormality no longer present Electronically Signed On 08-30-21 07:37:15 CDT by Yohan Henao
--- NOTE | 2021-08-30 07:40 | EKG ---
Test Date: 2021-08-29 Test Time: 11:16:13 Coat Operator: ALP MEASUREMENT RESULTS: Intervals: Rate: 82 MS: QRSD: 108 QT: 368 QTc: 429 [place]: P: 79 MS: QRS: 70 T: 68 INTERPRETIVE STATEMENTS: Atrial flutter with variable AV block Incomplete right bundle branch block Nonspecific ST and T wave abnormality Abnormal ECG Compared to ECG 08/29/2021 11:08:45 Possible ischemia no longer present ST (T wave) deviation still present Electronically Signed On 08-30-21 07:37:14 CDT by Yohan Henao
[2021-08-30] MEDS ORDERED: METOPROLOL TARTRATE 5 MG/5 ML INJ IV STA (08:14)
--- NOTE | 2021-08-30 08:20 | P.PN ---
Subjective Date of Service: 08/30/21 Patient still with tachycardia. Continue with medication for rate control. Given IV digoxin as well as additional dose of IV Lopressor. Appreciate cardiology consultation. Review of Systems 10-point ROS is otherwise unremarkable Physical Examination - Vital Signs Temperature: 98 F Blood Pressure: 140/80 Pulse: 119 Respirations: 20 Pulse Ox (%): 95 - Physical Exam General: Alert, In no apparent distress HEENT: Atraumatic, PERRLA, EOMI Neck: Supple, JVD not distended Respiratory: Clear to auscultation bilaterally, Normal air movement Cardiovascular: Regular rate/rhythm, Normal S1 S2 Gastrointestinal: Normal bowel sounds, No tenderness Musculoskeletal: No tenderness Integumentary: No rashes Neurological: Normal speech, Normal tone, Normal affect Lymphatics: No axilla or inguinal lymphadenopathy - Studies Laboratory Data (last 24 hrs) 08/29/21 11:10: PT 11.6, INR 1.05, APTT 35.5 08/29/21 11:10: WBC 8.9, Hgb 16.7 H, Hct 51.9 H, Plt Count 278 08/29/21 11:10: Sodium 141, Potassium 4.1, BUN 19 H, Creatinine 1.31 H, Glucose 109 H Medications List Reviewed: Yes Assessment & Plan - Problems (Diagnosis) (1) Atrial fibrillation with RVR Current Visit: Yes Status: Acute (2) HTN (hypertension) Current Visit: Yes Status: Acute (3) Hypothyroid Current Visit: Yes Status: Acute (4) Dyslipidemia Current Visit: Yes Status: Acute - Plan Plan: Continue plan of care as mentioned below: 1. Continue with medication for rate control 2. Continue with anticoagulation 3. Cardiology consultation 4. Echocardiogram 5. Monitor on telemetry 6. GI DVT prophylaxis Discharge Plan: Home Plan to discharge in: Greater than 2 days - Advance Directives Does patient have a Living Will: No Does patient have a Durable POA for Healthcare: No - Code Status/Comfort Care Code Status: Full Code Critical Care: No Time Spent Managing PTS Care (In Minutes): 45
[2021-08-30] MEDS ORDERED: METOPROLOL TARTRATE 5 MG/5 ML INJ IV ONE (08:49)
[2021-08-30] MEDS ORDERED: ENOXAPARIN 80 MG/0.8 ML SQ ONE (08:50)
[2021-08-30] MEDS ORDERED: ENOXAPARIN 80 MG/0.8 ML SQ SCH (09:00)
[2021-08-30 16:19] VITALS: BP 161/77; TEMP 98.3
[2021-08-30 19:21] VITALS: O2SAT 95
--- NOTE | 2021-08-31 07:36 | ECHO ---
HEIGHT: 5 ft 2 in WEIGHT: 189 lb 9.561 oz DATE OF STUDY: 08/30/[address]: Clayton Jimenez MD 2-DIMENSIONAL: YES M.MODE: YES DOPPLER: YES COLOR FLOW: YES TDS: NO PORTABLE: YES DEFINITY: NO BUBBLE STUDY: NO DIAGNOSIS: ATRIAL FIBRILLATION CARDIAC HISTORY: CATHERIZATION: NO SURGERY: NO PROSTHETIC VALVE: NO PACEMAKER: NO MEASUREMENTS (cm) DIASTOLIC (NORMALS) SYSTOLIC (NORMALS) IVSd 1.1 (0.6-1.2) LA Diam 3.7 (1.9-4.0) LVEF 60% LVIDd 4.3 (3.5-5.7) LVIDs 2.9 (2.0-3.5) %FS 32% LVPWd 1.2 (0.6-1.2) Ao Diam 2.3 (2.0-3.7) 2 DIMENSIONAL ASSESSMENT: RIGHT ATRIUM: NORMAL LEFT ATRIUM: ENLARGED RIGHT VENTRICLE: NORMAL LEFT VENTRICLE: NORMAL TRICUSPID VALVE: MITRAL VALVE: PULMONIC VALVE: NORMAL AORTIC VALVE: PERICARDIAL EFFUSION: NONE AORTIC ROOT: NORMAL LEFT VENTRICULAR WALL MOTION: NORMAL DOPPLER/COLOR FLOW: SEE BELOW COMMENTS: NORMAL LEFT VENTRICULAR EJECTION FRACTION 55-60%. MILD MITRAL, TRICUSPID AND AORTIC REGURGITATION. ATRIAL FIBRILLATION. LEFT ATRIAL ENLARGEMENT. TECHNOLOGIST: Michael MERLOS
--- NOTE | 2021-09-03 12:19 | CON ---
Date of Consultation: 08/30/2021 Admitted on 08/29/[address] Jimenez's service. I saw the patient on 08/30/2021. Reason For Consultation: Hypertension and atrial fibrillation with rapid ventricular response. History Of Present Illness: Ms. Roger is an 86. Has a history of hypertension, dyslipidemia, hypo thyroidism. Came in with hypertension, was found to be in atrial fibrillation with rapid ventricular response. Denies any chest pain, shortness of breath, nausea, vomiting, diaphoresis, PND, orthopnea , pedal edema, or syncope. She did have palpitation. Denied any fever or chills. Past Medical History: As stated above. Allergies: NONE. Review of Systems: Negative. Social History: Negative. Family History: Negative. Medications: At home include Crestor, triamterene with hydrochlorothiazide, and Synthroid. Physical Examination: Vital Signs: Stable, afebrile. HEENT: Negative. Neck: Supple with no bruit. Chest: Clear. Cardiac: Revealed irregularly irregular rhythm and rate without any murmurs, gallops, or rubs. Abdomen: Benign. Extremities: Revealed no clubbing, cyanosis, or edema. Diagnostic Data: She has a normal echo and normal x-ray. EKG showed atrial flutter. BNP was 4688, creatinine of 1.31. Impression And Plan: 1.Hypertension. 2.Dyslipidemia. 3.Hypothyroidism. 4.Atrial fibrillation. She is in atrial flutter, rate control. She needs to go home on her home me dication. She has a normal echo and normal chest x-ray. We need to put her on beta-lucas, low-dos e anticoagulants, probably Eliquis 2.5 b.i.d. and I will see her in the office in the very near [facility] Voice ID: [id number] Report ID: [id number]
== END 2021-08-30 18:25 | disposition home or self-care (01) | DRG 310 ==
LOC: ER 10:46 → ERHOLD 08-30 01:20
PROVIDERS: ADMIT Hospitalist; ATTEND Hospitalist
DX: I48.91 Unspecified atrial fibrillation (principal); I10 Essential (primary) hypertension; E78.5 Hyperlipidemia, unspecified; E03.9 Hypothyroidism, unspecified; F17.210 Nicotine dependence, cigarettes, uncomplicated; Z20.822 Contact with and (suspected) exposure to COVID-19
CPT/HCPCS: 36415; 71045; 80048; 80061; 83880; 84484; 85025; 85610; 85730; 93005; 93306; 96361; 96374; 99285; J0153; J1160; J2270; J7030; U0003